=== PATIENT | female | born 1995 ===

== ENCOUNTER 2017-01-04 19:29 | Emergency (ER) | payer SELFPAY ==
[2017-01-04 20:06] VITALS: RESP 18
[2017-01-04] MEDS ORDERED: Sodium Chloride 0.9% 1,000 ML IV STA (20:17)
[2017-01-04 20:55] LABS: BASO # 0.1 K/uL (0.0-0.2); BASO % 0.7 % (0.0-2.0); EOS # 0.2 K/uL (0.0-0.7); EOS % 1.4 % (0.0-4.0); HEMATOCRIT 38.1 % (34.0-47.0); LYMPH # 3.4 K/uL (1.0-4.3); LYMPH % 30.1 % (20.0-40.0); MEAN CELL VOLUME 90.3 fl (81.0-99.0); MEAN CORPUSCULAR HEMOGLOBIN 30.7 pg (27.0-31.0); MEAN CORPUSCULAR HGB CONC 34.1 g/dL (33.0-37.0); MEAN PLATELET VOLUME 7.8 fl (7.2-11.7); MONO % 8.4 % (0.0-10.0); NEUT # 6.8 K/uL (1.8-7.0); NEUT % 59.4 % (50.0-75.0); NRBC % 0.1 % (0.0-0.0); WHITE BLOOD COUNT 11.4 K/uL (4.8-10.8)
[2017-01-04 21:05] LABS: RBC URINE 7 /hpf (0-3); URINE BACTERIA OCC (<OCC); URINE BILIRUBIN NEGATIVE (NEGATIVE); URINE BLOOD MODERATE (NEGATIVE); URINE COLOR YELLOW (YELLOW); URINE GLUCOSE (UA) NEG (Normal); URINE KETONE NEGATIVE (NEGATIVE); URINE LEUKOCYTE ESTERASE TRACE Leu/uL (Negative); URINE PROTEIN NEGATIVE (NEGATIVE); WBC URINE 3 /hpf (0-5)
[2017-01-04 21:10] LABS: ALB/GLOB RATIO 1.3 (1.0-2.1); ALKALINE PHOSPHATASE 68 U/L (38-126); ALT/SGPT 25 U/L (9-52); AST/SGOT 20 U/L (14-36); BILIRUBIN,TOTAL 0.4 mg/dl (0.2-1.3); BLOOD UREA NITROGEN 9 mg/dl (7-17); CALCIUM 9.1 mg/dL (8.4-10.2); CARBON DIOXIDE 23 mmol/L (22-30); CHLORIDE 101 mmol/L (98-107); GFR AFRICAN-AMERICAN > 60; GLUCOSE,RANDOM 85 mg/dL (65-105); POTASSIUM 3.7 MMOL/L (3.6-5.0); SODIUM 137 mmol/l (132-148); TOTAL PROTEIN 7.7 G/DL (6.3-8.2)
--- NOTE | 2017-01-04 22:33 | ED PDOC ---
HPI: Female Pain Time Seen by Provider: 01/04/17 20:16 Chief Complaint (Nursing): GI Problem Chief Complaint (Provider): nausea /vomiting/weakness History Per: Patient History/Exam Limitations: no limitations Associated Symptoms: Nausea, Vomiting, Loss Of Appetite. denies: Fever, Chills , Diarrhea, Back Pain, Chest Pain, Constipation, Urinary Symptoms Additional Complaint(s): 21yo F in ED for eval of nausea and vomiting with weakness x 2-3 days states that she is . denies back pain, vaginal bleeding, fever LE cramping. Abnormal Vaginal Bleeding: No : 1 Para: 0 Miscarriage: 0 Past Medical History Reviewed: Historical Data, Nursing Documentation, Vital Signs Vital Signs: Last Vital Signs Temp 99.3 F 01/04/17 20:02 Pulse 79 01/04/17 20:02 Resp 18 01/04/17 20:02 BP 125/75 01/04/17 20:02 Pulse Ox 99 01/04/17 20:02 - Medical History PMH: Asthma - Family History Family History: States: No Known Family Hx - Immunization History Hx Tetanus Toxoid Vaccination: No Hx Influenza Vaccination: No Hx Pneumococcal Vaccination: No - Home Medications Home Medications: Ambulatory Orders Medication Instructions Recorded Nitrofurantoin Macrocrystals 100 mg PO BID #14 cap 01/04/17 [Macrobid] - Allergies Allergies/Adverse Reactions: Allergies Allergy/AdvReac Type Severity Reaction Status Date / Time Penicillins Allergy RASH Verified 01/04/17 20:03 Review of Systems ROS Statement: Except As Marked, All Systems Reviewed And Found Negative Constitutional: Positive for: Weakness. Negative for: Fever, Chills Gastrointestinal: Positive for: Nausea, Vomiting. Negative for: Abdominal Pain , Diarrhea Physical Exam - Reviewed Nursing Documentation Reviewed: Yes Vital Signs Reviewed: Yes - Physical Exam Appears: Positive for: Non-toxic, No Acute Distress, Uncomfortable Head Exam: Positive for: ATRAUMATIC, NORMAL INSPECTION, NORMOCEPHALIC Skin: Positive for: Normal Color, Warm, DRY Neck: Positive for: Normal, Painless ROM Cardiovascular/Chest: Positive for: Regular Rate, Rhythm Respiratory: Positive for: CNT, Normal Breath Sounds Gastrointestinal/Abdominal: Positive for: Normal Exam, Bowel Sounds, Soft. Negative for: Tenderness Back: Positive for: Normal Inspection. Negative for: L CVA Tenderness, R CVA Tenderness Extremity: Positive for: Normal ROM Neurologic/Psych: Positive for: Alert, Oriented - Laboratory Results Result Diagrams: 01/04/17 20:32 01/04/17 20:32 - ECG O2 Sat by Pulse Oximetry: 99 - Progress ED Course And Treament: 01/04/17 01/04/17 01/04/17 20:32 20:32 20:32 WBC 11.4 H RBC 4.22 Hgb 13.0 Hct 38.1 MCV 90.3 MCH 30.7 MCHC 34.1 RDW 13.0 Plt Count 346 MPV 7.8 Neut % (Auto) 59.4 Lymph % (Auto) 30.1 [place] % (Auto) 8.4 Eos % (Auto) 1.4 Baso % (Auto) 0.7 Neut # 6.8 Lymph # 3.4 [place] # 1.0 H Eos # 0.2 Baso # 0.1 Sodium 137 Potassium 3.7 Chloride 101 Carbon Dioxide 23 Anion Gap 17 BUN 9 Creatinine 0.5 L Est GFR ( Amer) > 60 Est GFR (Non-Af Amer) > 60 Random Glucose 85 Calcium 9.1 Total Bilirubin 0.4 AST 20 ALT 25 Alkaline Phosphatase 68 Total Protein 7.7 Albumin 4.4 Globulin 3.3 Albumin/Globulin Ratio 1.3 Urine Color Yellow Urine Clarity Slighty-cloudy Urine pH 6.0 Ur Specific [place] 1.014 Urine Protein Negative Urine Glucose (UA) Neg Urine Ketones Negative Urine Blood Moderate Urine Nitrate Negative Urine Bilirubin Negative Urine Urobilinogen 2.0 H Ur Leukocyte Esterase Trace Urine RBC (Auto) 7 H Urine Microscopic WBC 3 Ur Squamous Epith Cells 6 H Urine Bacteria Occ H Hyaline Casts 0-2 Medical Decision Making Medical Decision Making: PT provided with IV fluids improved in ER-labs show UTI. will treat with macrobid in ER adn d/c with Rx for macrobid with f.u with pmd Disposition - Clinical Impression Clinical Impression: UTI in - Patient ED Disposition Is Patient to be Admitted: No Counseled Patient/Family Regarding: Studies Performed, Diagnosis, Need For Followup, Rx Given - Disposition Referrals: [facility] [Outside] [facility] [Outside] [facility] [Outside] Disposition: Routine/Home Disposition Time: 22:35 Condition: STABLE Prescriptions: Nitrofurantoin Macrocrystals [Macrobid] 100 mg PO BID #14 cap Instructions: Urinary Tract Infection in Women (DC), Urinary Tract Infection in (ED) Print Language: [place]
[2017-01-04 22:47] VITALS: BP 115/77; PULSE 78; TEMP 98.6; O2SAT 100
== END 2017-01-05 00:13 | disposition home or self-care (01) ==
LOC: H.ER 19:29
DX: O23.40 Unspecified infection of urinary tract in pregnancy, unspecified trimester (principal); J45.909 Unspecified asthma, uncomplicated; Z88.0 Allergy status to penicillin
CPT/HCPCS: 80053; 81003; 81025; 85025; 96374; 99282; J2405; J7040

== ENCOUNTER 2017-06-19 21:17 | Emergency (ER) | payer BC ==
[2017-06-19 21:52] VITALS: BMI 25.0
[2017-06-19 22:31] LABS: SQUAMOUS EPITHIAL 1 /hpf (0-5); URINE BILIRUBIN NEGATIVE (NEGATIVE); URINE BLOOD MODERATE (NEGATIVE); URINE CLARITY CLEAR (Clear); URINE COLOR STRAW (YELLOW); URINE GLUCOSE (UA) NEG (Normal); URINE LEUKOCYTE ESTERASE TRACE Leu/uL (Negative); URINE PROTEIN NEGATIVE (NEGATIVE); URINE UROBILINOGEN 0.2-1.0 mg/dL (0.2-1.0)
[2017-06-19] MEDS ORDERED: Lactated Ringer's 1,000 ML IV SCH (23:30)
[2017-06-20 08:15] VITALS: BP 99/66; PULSE 88; O2SAT 99
== END 2017-06-20 00:40 | disposition home or self-care (01) ==
LOC: H.EROB2 21:17
DX: O26.93 Pregnancy related conditions, unspecified, third trimester (principal); R10.2 Pelvic and perineal pain; Z3A.30 30 weeks gestation of pregnancy
CPT/HCPCS: 81003; 96360; 99283; J7120